=== PATIENT | female | born 1975 | race Hispanic/Latino ===

== ENCOUNTER → 2017-10-27 | Outpatient (CLI) | payer BC ==
--- NOTE | 2017-10-27 17:42 | Diagnostic Imaging Report ---
CT Abdomen and Pelvis without contrast INDICATION: Right flank pain TECHNIQUE: Thin collimation axial images obtained from the diaphragm to the level of the pubic symphysis without nonionic intravenous contrast. RADIATION DOSE: Total DLP: 599.97 mGy*cm Estimated effective dose: (DLP x 0.015 x size factor) mSv CTDIvol has been reviewed. It is below the limits set by the Radiation Protocol Committee (RPC). COMPARISON: Report of CT absence/pelvis 09/15/2014. ABDOMEN FINDINGS: Lung Bases: Focal microatelectasis versus focus of inflammation in the posterior right lower lobe abutting the pleura visualized portion of the mediastinum is normal. The visualized portion of the mediastinum is normal. Liver: Normal in attenuation without mass. Gallbladder: Present and appears normal. No ductal dilatation. Pancreas: Normal attenuation without mass. Spleen: Normal size without mass. Adrenal Glands: No evidence for mass. Kidneys: Right: No renal calculus. No cortical mass or hydronephrosis Left: No renal calculus. No cortical mass or hydronephrosis Lymph Nodes: No enlarged abdominal or periaortic lymph nodes. Aorta: Normal in diameter. PELVIS FINDINGS: Bowel: Stomach: Normal. Small Bowel: Normal in caliber with normal wall thickness. Large Bowel: Normal in caliber with normal wall thickness. Chain sutures at the base of the cecum are suggestive of appendectomy. Appendix: Not visualized. Bladder: Well distended and normal. Ureters: No ureteral dilatation or calculus. The uterus is present with mildly lobulated contour in the anterior body. A tampon is in the vagina. No adnexal mass. No free fluid or fluid collection. Bones: Unremarkable for age. Soft tissues: Nodule in the medial left breast is incompletely imaged and measures 9 mm. IMPRESSION: 1. No evidence of renal calculus or obstructive uropathy. No soft tissue mass to explain right flank pain. 2. No evidence for bowel obstruction or inflammation. Suspected appendectomy. 3. Lobulated contour the anterior body of the uterus suggestive of underlying fibroid. Consider further evaluation with pelvic ultrasound. 4. Nodule in the medial left breast. Recommend further characterization with ultrasound and mammogram. Signed by: Dr. Amarilis Allan MD on 10/27/2017 5:38 PM
== END ==
LOC: CT 16:45
PROVIDERS: ATTEND Internal Medicine
DX: R10.2 Pelvic and perineal pain (principal); R31.9 Hematuria, unspecified
CPT/HCPCS: 74176

== ENCOUNTER → 2017-10-30 | Outpatient (CLI) | payer BC ==
[~2017-10-30] MED LIST: DILANTIN30 MG PO; KEPPRA500 MG PO
--- NOTE | 2017-10-30 19:04 | Diagnostic Imaging Report ---
PROCEDURE:PELVIC ULTRASOUND COMPARISON:[facility], CT, CT ABDOMEN/PELVIS WO, 10/27/2017, 17:04. INDICATIONS:LEIOMYOMA OF UTERUS TECHNIQUE: Grayscale transverse and sagittal transabdominal images were obtained of the pelvis. FINDINGS: 42-year-old female patient G3, P2, with stated LMP 10/28/2017. History of left oophorectomy UTERUS: 11.7 x 5.2 x 7.3 cm. 3.7 x 3.0 x 3.5 cm isoechoic lesion in the anterior body, likely representing a fibroid. No other focal lesions. ENDOMETRIUM: 0.6 cm. Homogeneous echogenicity, without focal thickening. RIGHT OVARY: 3.4 x 2.0 x 3.1 cm. No focal lesions. LEFT OVARY: Absent There is no free fluid within the pelvis. No adnexal masses. CONCLUSION: 3.7 cm isoechoic fibroid in the anterior body. Chris Gaona M.D. Dictated by: Chris Gaona M.D. on 10/30/2017 at 19:08 Electronically approved by: Chris Gaona M.D. on 10/30/2017 at 19:08
== END ==
LOC: US 15:51
PROVIDERS: ATTEND Internal Medicine
DX: D25.9 Leiomyoma of uterus, unspecified (principal)
CPT/HCPCS: 76856

== ENCOUNTER → 2017-12-26 | Day surgery (SDC) | payer BC ==
[2017-12-24 14:27] LABS: BASOPHILS # (AUTO) 0.1 (0.0-0.1); BASOPHILS % 1.1 % (0.0-1.0); EOSINOPHILS # (AUTO) 0.3 (0.0-0.4); EOSINOPHILS % 3.2 % (0.0-6.0); HEMATOCRIT 35.4 % (34.2-44.1); HEMOGLOBIN 11.3 g/dL (12.0-16.0); LYMPHOCYTES # (AUTO) 3.7 (1.0-3.2); LYMPHOCYTES % 43.9 % (18.0-39.1); MEAN CORPUSCULAR HEMOGLOBIN 26.9 pg (28-32); MEAN CORPUSCULAR HGB CONC 31.9 g/dL (31-35); MEAN CORPUSCULAR VOLUME 84.3 fL (81-99); MONOCYTES # (AUTO) 0.6 (0.2-0.8); MONOCYTES % 7.5 % (4.4-11.3); NEUTROPHILS # (AUTO) 3.8 (2.1-6.9); NEUTROPHILS % 44.2 % (38.7-80.0); PLATELET COUNT 353 x10e3/uL (140-360); RED CELL DISTRIBUTION WIDTH 14.6 % (11.7-14.4)
[2017-12-24 16:06] LABS: ANION GAP 13.5 mmol/L (8-16); BLOOD UREA NITROGEN 14 mg/dL (7-26); BUN/CREATININE RATIO 18 (6-25); CALCIUM 9.8 mg/dL (8.4-10.2); CARBON DIOXIDE 27 mmol/L (22-29); CHLORIDE 105 mmol/L (98-107); CREATININE, SERUM 0.78 mg/dL (0.57-1.11); EST GLOMERULAR FILTRATION RATE > 60 ML/MIN (60-); GLUCOSE 82 mg/dL (74-118); POTASSIUM 3.5 mmol/L (3.5-5.1); SODIUM 142 mmol/L (136-145)
[~2017-12-26] MED LIST changes: +BUPIVACAINE 0.25%/EPI 30ML SDV INJ ONE; +DEXAMETHASONE SOD PHOS INJ 4 MG/ML VIAL ONE; +FENTANYL CITRATE/PF 100MCG/2 ML INJ ONE; +GELATIN SPONGE SZ 100 ONE; +HYDROMORPHONE 1MG/1ML INJ ONE; +LIDOCAINE HCL 1% LOCAL INJ 20 ML VIAL ONE; +LIDOCAINE HCL 2% 30 ML TUBE ONE; +LIDOCAINE HCL 2% LOCAL INJ 5 ML SDV VIAL INJ ONE; +MIDAZOLAM HCL 2 MG/2 ML VIAL ONE; +ONDANSETRON HCL INJ 2 MG/ML VIAL ONE; +PROPOFOL IV EMULSION 10 MG/ML 20 ML VIAL ONE; +SEVOFLURANE INHAL SOLN 250 ML PEN BTL ONE
--- NOTE | 2017-12-26 10:29 | Operative Report ---
DATE OF PROCEDURE: December 26, 2017 PREOPERATIVE DIAGNOSIS: Internal and external hemorrhoids. POSTOPERATIVE DIAGNOSIS: Internal and external hemorrhoids. OPERATION PERFORMED: Internal and external hemorrhoidectomy. ANESTHESIA: General. COMPLICATIONS: None. ESTIMATED BLOOD LOSS: Minimal. DESCRIPTION OF PROCEDURE: With the patient lying in bed in the lithotomy position, under good general anesthesia, the perineum was prepped with Betadine solution and draped in the usual manner. A standard anal block was then performed with 1/4 percent Marcaine with epinephrine and 1% Xylocaine. Examination at this point revealed 2 hemorrhoidal groups, one at the 12 and the other one was at the 5 o'clock position. The one at the 5 o'clock position had a larger external component. The internal component of both groups was then ligated with #0 chromic suture. The external component was then opened, and all the clots were slowly and carefully removed and excised, and hemostasis was ascertained. After this was done, a Gelfoam pack was then placed in the external component, and a Gelfoam pack impregnated with Xylocaine was placed in the rectum. A dressing was applied. The sponge, lap and needle count was correct. Patient tolerated the procedure well and returned to the recovery room in stable condition. Job#: [id number]
[2017-12-26 10:45] VITALS: BP 114/69
== END | disposition home or self-care (01) ==
LOC: OR 05:51
PROVIDERS: ATTEND Surgery
DX: K64.8 Other hemorrhoids (principal); K64.4 Residual hemorrhoidal skin tags; R56.9 Unspecified convulsions; F17.200 Nicotine dependence, unspecified, uncomplicated; Z01.810 Encounter for preprocedural cardiovascular examination; Z01.812 Encounter for preprocedural laboratory examination
CPT/HCPCS: 36415; 46260; 80048; 81025; 85025; 93005; J1100; J1170; J2001; J2250; J2405

== ENCOUNTER → 2021-08-08 | Outpatient (CLI) | payer BC ==
[~2021-08-08] MED LIST changes: -BUPIVACAINE 0.25%/EPI 30ML SDV INJ ONE; -DEXAMETHASONE SOD PHOS INJ 4 MG/ML VIAL ONE; -FENTANYL CITRATE/PF 100MCG/2 ML INJ ONE; +GADOBENATE DIMEGLUMINE 1 ML IV ONE; -GELATIN SPONGE SZ 100 ONE; -HYDROMORPHONE 1MG/1ML INJ ONE; -LIDOCAINE HCL 1% LOCAL INJ 20 ML VIAL ONE; -LIDOCAINE HCL 2% 30 ML TUBE ONE; -LIDOCAINE HCL 2% LOCAL INJ 5 ML SDV VIAL INJ ONE; -MIDAZOLAM HCL 2 MG/2 ML VIAL ONE; -ONDANSETRON HCL INJ 2 MG/ML VIAL ONE; -PROPOFOL IV EMULSION 10 MG/ML 20 ML VIAL ONE; -SEVOFLURANE INHAL SOLN 250 ML PEN BTL ONE
== END ==
LOC: MRI 09:58
PROVIDERS: ATTEND Internal Medicine
DX: D49.89 Neoplasm of unspecified behavior of other specified sites (principal); R22.32 Localized swelling, mass and lump, left upper limb; R07.9 Chest pain, unspecified
CPT/HCPCS: 71046; 73220; A9577